=== PATIENT | male | born 1980 | race Caucasian/White ===

== ENCOUNTER → 2022-12-17 09:01 | Outpatient (CLI) | payer OTHER, MEDICAID, SELFPAY ==
[2022-12-17 11:19] LABS: BUN Creatinine Ratio 13.2 (6-22); Blood Urea Nitrogen 10 mg/dL (9-20); Calcium 9.4 mg/dL (8.4-10.2); Carbon Dioxide 29 mmol/L (22-32); Chloride 106 mmol/L (98-107); Cholesterol 230 mg/dL (140-199); Estimated Glomerular Filt Rate > 60 mL/min (>60); Glucose 101 mg/dL (70-100); HDL Cholesterol 64 mg/dL (40-60); HEMOLYSIS < 15 (0-50); LDL Cholesterol Calculated 142 mg/dL (<100); Lithium 1.2 mmol/L (0.6-1.2); Potassium 4.6 mmol/L (3.4-5.1); Sodium 140 mmol/L (137-145); Triglycerides 119 mg/dL (35-150)
[2022-12-17 11:48] LABS: Thyroid Stimulating Hormone 2.05 uIU/mL (0.47-4.68)
[2022-12-18 04:09] LABS: Labcorp Hemoglobin (Hb) A1c 5.1 % (4.8-5.6)
== END ==
PROVIDERS: Family Provider Family Medicine; Referring Provider Psychiatry & Neurology Geriatric Psychiatry; Visit Provider Psychiatry & Neurology Geriatric Psychiatry
DX: F25.0 Schizoaffective disorder, bipolar type (principal)
CPT/HCPCS: 36415; 80048; 80061; 80178; 83036; 84443

== ENCOUNTER → 2025-03-23 08:57 | Outpatient (CLI) | payer OTHER, SELFPAY ==
[2025-03-23 10:15] LABS: Hematocrit 36.4 % (41-53); Hemoglobin 12.3 g/dL (13.5-17.5); Mean Corpuscular HGB Conc 33.8 % (30-36); Mean Corpuscular Hemoglobin 31.6 PG (26-34); Mean Corpuscular Volume 93.4 fL (80-100); Platelet Count 220 X10^3/uL (150-400)
[2025-03-23 10:38] LABS: Lithium 0.8 mmol/L (0.6-1.2)
[2025-03-23 10:40] LABS: Alanine Aminotransferase 20 IU/L (<50); Albumin 4.3 g/dL (3.5-5.0); Albumin Globulin Ratio 1.8 (1.0-2.8); Alkaline Phosphatase 80 U/L (38-126); Blood Urea Nitrogen 18 mg/dL (9-20); Calcium 9.6 mg/dL (8.4-10.2); Carbon Dioxide 27 mmol/L (22-32); Chloride 106 mmol/L (98-107); Cholesterol 211 mg/dL (140-199); Estimated Glomerular Filt Rate > 60 mL/min (>60); Globulin 2.4 g/dL (1.7-4.1); Glucose 97 mg/dL (70-99); HDL Cholesterol 87 mg/dL (40-60); HEMOLYSIS < 15 (0-50); Potassium 4.8 mmol/L (3.4-5.1); Sodium 140 mmol/L (137-145); Total Protein 6.7 g/dL (6.3-8.2); Triglycerides 58 mg/dL (35-150)
[2025-03-23 10:42] LABS: Hemoglobin A1C% w Est Avg Glu 4.8 % (4.0-6.0)
[2025-03-23 16:56] LABS: Thyroid Stimulating Hormone 2.55 uIU/mL (0.47-4.68)
[2025-03-24 07:37] LABS: Carbamazepine Tegretol Level 5.5 ug/mL (4.0-12.0)
== END ==
PROVIDERS: Referring Provider Psychiatry & Neurology Geriatric Psychiatry; Visit Provider Psychiatry & Neurology Geriatric Psychiatry
DX: F25.0 Schizoaffective disorder, bipolar type (principal)
CPT/HCPCS: 36415; 80053; 80061; 80156; 80178; 83036; 84443; 85027